=== PATIENT | female | born 1965 | race Caucasian/White ===

== ENCOUNTER 2017-03-22 13:55 | Emergency (ER) | payer OTHER ==
[2017-03-22 14:20] VITALS: BP 105/76; PULSE 85; RESP 18; TEMP 98.2; O2SAT 99
[2017-03-22 14:41] VITALS: BMI 25.0
--- NOTE | 2017-03-22 16:22 | C.PDOC ---
History Of Present Illness 51 yr old female with PMHx of anxiety and panic disorder, presents to the ER stating she was seeing a psychiatrist in [place]. Patient is here stating she would like to to be seen for her anxiety and be able to receive medicine. Patient denies suicidal ideation, homicidal ideation, chest pain, SOB and is currently not anxious. Time Seen by Provider: 03/22/17 14:51 Chief Complaint (Nursing): Psychiatric Evaluation History Per: Patient History/Exam Limitations: no limitations Onset/Duration Of Symptoms: Persistent Past Medical History Reviewed: Historical Data, Nursing Documentation, Vital Signs Vital Signs: Last Vital Signs Temp 98.2 F 03/22/17 14:15 Pulse 85 03/22/17 14:15 Resp 18 03/22/17 14:15 BP 105/76 03/22/17 14:15 Pulse Ox 99 03/22/17 18:41 - Medical History PMH: Anxiety Family History: States: No Known Family Hx - Social History Hx Alcohol Use: No Hx Substance Use: No - Immunization History Hx Tetanus Toxoid Vaccination: Yes Hx Influenza Vaccination: Yes Hx Pneumococcal Vaccination: Yes Review Of Systems Except As Marked, All Systems Reviewed And Found Negative. Cardiovascular: Negative for: Chest Pain Respiratory: Negative for: Shortness of Breath Psych: Positive for: Other (No homicidal ideation ). Negative for: Anxiety, Suicidal ideation Physical Exam - Physical Exam Appears: Well, Non-toxic, No Acute Distress Skin: Normal Color, Warm, Dry, No Rash Head: Atraumatic, Normacephalic Oral Mucosa: Moist Chest: Symmetrical, No Tenderness Cardiovascular: Rhythm Regular, No Murmur Respiratory: Normal Breath Sounds, No Rales, No Rhonchi, No Stridor, No Wheezing Gastrointestinal/Abdominal: No Rebound Extremity: Normal ROM, No Swelling Neurological/Psych: Oriented x3, Normal Speech, Normal Motor ED Course And Treatment O2 Sat by Pulse Oximetry: 99 Medical Decision Making Medical Decision Making: PLAN: * CBC * Urinalysis Pt was evaluated by the quill worker, and case was discussed with psychiatrist and pt was cleared for discharge. Disposition - Disposition Referrals: [facility] [Outside] Disposition: HOME/ ROUTINE Disposition Time: 16:21 Condition: GOOD Additional Instructions: Follow up with the medical doctor within 1-2 days without fail. Return if worsened. Instructions: Anxiety (ED) - Clinical Impression Clinical Impression: Anxiety - PA / [employer] / Resident Statement MD/DO has reviewed & agrees with the documentation as recorded. - Scribe Statement The provider has reviewed the documentation as recorded by the Scribe Geri Martinez All medical record entries made by the Consueloibe were at my direction and personally dictated by me. I have reviewed the chart and agree that the record accurately reflects my personal performance of the history, physical exam, medical decision making, and the department course for this patient. I have also personally directed, reviewed, and agree with the discharge instructions and disposition.
== END 2017-03-22 16:34 | disposition home or self-care (01) ==
LOC: C.ER 13:55 → SUPCPDRO 13:55 → C.ER 16:34
DX: F41.9 Anxiety disorder, unspecified (principal)